=== PATIENT | male | born 1995 | race Two or more races ===

== ENCOUNTER 2017-08-06 15:27 | Emergency (ER) | payer SELFPAY ==
[~2017-08-06] VITALS: Ht 175.3 cm; Wt 86.2 kg
[2017-08-06] MEDS ORDERED: KEPPRA1000 MG ORAL (15:29)
[2017-08-06] MEDS ORDERED: TOPIRAMATE200 MG PO (15:29)
[2017-08-06 15:32] VITALS: BP 102/62
[2017-08-06] MEDS ORDERED: levETIRAcetam 500 MG in D5W 110 ML IV ONE (15:45)
[2017-08-06] MEDS ORDERED: levETIRAcetam 500mg vial IV ONE (15:59)
[2017-08-06 16:32] LABS: BASOPHILS % (AUTO) 1.3 % (0.0-2.0); EOSINOPHILS % (AUTO) 3.4 % (0.0-3.0); LYMPHOCYTES % (AUTO) 22.9 % (20.0-45.0); MEAN CORPUSCULAR HEMOGLOBIN 33.7 PG (27.0-31.0); MEAN CORPUSCULAR HGB CONC 37.5 G/DL (32.0-36.0); MEAN CORPUSCULAR VOLUME 90 FL (80-99); MEAN PLATELET VOLUME 8.8 FL (6.5-10.1); MONOCYTES % (AUTO) 7.3 % (1.0-10.0); PLATELET COUNT 187 K/UL (150-450); RED BLOOD COUNT 4.75 M/UL (4.70-6.10); RED CELL DISTRIBUTION WIDTH 11.7 % (11.6-14.8); WHITE BLOOD COUNT 7.1 K/UL (4.8-10.8)
[2017-08-06 17:00] LABS: ALANINE AMINOTRANSFERASE 32 U/L (3-41); ALBUMIN/GLOBULIN RATIO 1.7 (1.0-2.7); ANION GAP 12 (5-15); CALCIUM 8.9 mg/dL (8.6-10.2); CARBON DIOXIDE 19 mEQ/L (20-30); CHLORIDE 108 mEQ/L (98-107); GLOMERULAR FILTRATION RATE > 60 mL/min (>60); HEMOLYSIS 21; POTASSIUM 3.8 mEQ/L (3.4-4.9); SODIUM 139 mEQ/L (135-145); TOTAL PROTEIN 6.9 g/dL (6.6-8.7)
[2017-08-06 17:09] LABS: ASPARTATE AMINO TRANSFERASE < 5 U/L (5-40)
[2017-08-06 17:30] VITALS: BP 102/54
--- NOTE | 2017-08-06 17:47 | Emergency Room Report ---
History of Present Illness General Chief Complaint: Seizure Source: Patient Present Illness HPI This patient has a history of seizure disorder. He has had epilepsy since age of 7. He has had multiple breakthrough seizures today. He states that he typically has about one seizure per month. He states that he did run out of his Keppra yesterday. He has no other complaints. He denies cough or congestion. Denies chest pain or shortness of breath. Denies fever or chills. He has no other complaints. Allergies: Coded Allergies: No Known Allergies (Unverified , 08/06/17) Patient History Past Medical History: see triage record, seizures Social History: Denies: smoking, alcohol use, drug use Reviewed Nursing Documentation: PMH: Agreed, PSxH: Agreed Nursing Documentation-PMH Past Medical History: No History, Except For Hx Seizures: Yes Review of Systems All Other Systems: negative except mentioned in HPI Physical Exam Vital Signs Date Time Temp Pulse Resp B/P (MAP) Pulse Ox O2 Delivery O2 Flow Rate FiO2 08/06/17 15:24 97.3 81 18 102/62 100 Room Air Sp02 EP Interpretation: reviewed, normal General Appearance: no apparent distress, alert, GCS 15, non-toxic Head: normocephalic, atraumatic Eyes: bilateral eye normal inspection, bilateral eye PERRL ENT: hearing grossly normal, normal pharynx, no angioedema, normal voice Neck: full range of motion, supple/symm/no masses Respiratory: chest non-tender, lungs clear, normal breath sounds, speaking full sentences Cardiovascular #1: regular rate, rhythm, no edema Gastrointestinal: normal bowel sounds, non tender, soft, non-distended, no guarding, no rebound Rectal: deferred Musculoskeletal: back normal, gait/station normal, normal range of motion, non- tender Neurologic: alert, oriented x3, responsive, motor strength/tone normal, sensory intact, speech normal Psychiatric: judgement/insight normal, memory normal, mood/affect normal, no suicidal/homicidal ideation Skin: normal color, no rash, warm/dry, well hydrated Medical Decision Making Diagnostic Impression: Primary Impression: Seizure disorder ER Course I suspect the seizures that the patient is presenting with is non-emergent in etiology. The patient has a history of seizures in the past and has returned to baseline with normal neurologic status. The patient is not immunocompromised with no history of known structural brain disease. The patient does not have persistent altered mental status, fever or new focal neurologic deficit. Laboratory workup was noncontributory. I doubt meningitis so a lumbar puncture was not performed. The patient was counseled that, though unlikely, the possibility of an emergent cause of seizure may still be present and that the patient should return immediately if symptoms persist or worsen. I believe the patient is stable for discharge to followup with the primary care provider for further workup. Laboratory Tests Test 08/06/17 15:50 White Blood Count 7.1 K/UL (4.8-10.8) Red Blood Count 4.75 M/UL (4.70-6.10) Hemoglobin 16.0 G/DL (14.2-18.0) Hematocrit 42.7 % (42.0-52.0) Mean Corpuscular Volume 90 FL (80-99) Mean Corpuscular Hemoglobin 33.7 PG (27.0-31.0) H Mean Corpuscular Hemoglobin Concent 37.5 G/DL (32.0-36.0) H Red Cell Distribution Width 11.7 % (11.6-14.8) Platelet Count 187 K/UL (150-450) Mean Platelet Volume 8.8 FL (6.5-10.1) Neutrophils (%) (Auto) 65.0 % (45.0-75.0) Lymphocytes (%) (Auto) 22.9 % (20.0-45.0) Monocytes (%) (Auto) 7.3 % (1.0-10.0) Eosinophils (%) (Auto) 3.4 % (0.0-3.0) H Basophils (%) (Auto) 1.3 % (0.0-2.0) Sodium Level 139 mEQ/L (135-145) Potassium Level 3.8 mEQ/L (3.4-4.9) Chloride Level 108 mEQ/L (98-107) H Carbon Dioxide Level 19 mEQ/L (20-30) L Anion Gap 12 (5-15) Blood Urea Nitrogen 8 mg/dL (7-23) Creatinine 1.0 mg/dL (0.7-1.2) Estimate Glomerular Filtration Rate > 60 mL/min (>60) Glucose Level 126 mg/dL (74-106) H Calcium Level 8.9 mg/dL (8.6-10.2) Total Bilirubin 0.3 mg/dL (0.0-1.2) Aspartate Amino Transferase (AST) < 5 U/L (5-40) L Alanine Aminotransferase (ALT) 32 U/L (3-41) Alkaline Phosphatase 87 U/L (40-129) Total Protein 6.9 g/dL (6.6-8.7) Albumin 4.4 g/dL (3.5-5.2) Globulin 2.5 g/dL Albumin/Globulin Ratio 1.7 (1.0-2.7) EKG Diagnostic Results Rate: normal Rhythm: NSR ST Segments: no acute changes Rhythm Strip Diag. Results EP Interpretation: yes Rate: 70's Rhythm: NSR, no PVC's, no ectopy Last Vital Signs Date Time Temp Pulse Resp B/P (MAP) Pulse Ox O2 Delivery O2 Flow Rate FiO2 08/06/17 15:32 81 18 Room Air 08/06/17 15:32 97.3 102/62 100 Status: improved Disposition: HOME, SELF-CARE Condition: Improved Referrals: NOT CHOSEN [facility]/,REFERRING (PCP) Patient Instructions: Seizure, Adult EMELYN HAYES D.O. Aug 06, 2017 17:47
[2017-08-06 18:00] VITALS: BP 102/54
--- NOTE | 2017-08-07 17:57 | Cardiology Report ---
APPROVED REPORT EKG Measurement Heart [id number] Normal sinus rhythm Rightward axis Borderline ECG
== END 2017-08-06 18:00 | disposition home or self-care (01) ==
LOC: EDBD 15:27 → EMR 15:55
DX: G40.909 Epilepsy, unspecified, not intractable, without status epilepticus (principal)
CPT/HCPCS: 36415; 80053; 82962; 85025; 93005; 96361; 96365; 99284; J1953

== ENCOUNTER 2019-03-26 18:10 | Emergency (ER) | payer MEDICAID ==
[~2019-03-26] VITALS: Ht 167.6 cm; Wt 90.7 kg
[~2019-03-26 18:10] MED LIST: KEPPRA1000 MG ORAL; TOPIRAMATE200 MG PO
[2019-03-26] MEDS ORDERED: TRILEPTAL600 MG PO (18:29)
[2019-03-26] MEDS ORDERED: VIMPAT200 MG PO (18:29)
[2019-03-26] MEDS ORDERED: PHENYTOIN100 MG/4 M ORAL (18:29)
--- NOTE | 2019-03-26 18:37 | NUR ---
ED Nurse Note: Attempted to contact patient's neurologist, Carly Fuentes, left voicemail.
[2019-03-26 18:46] LABS: BASOPHILS % (AUTO) 1.5 % (0.0-2.0); EOSINOPHILS % (AUTO) 4.7 % (0.0-3.0); HEMATOCRIT 44.6 % (42.0-52.0); HEMOGLOBIN 15.8 G/DL (14.2-18.0); LYMPHOCYTES % (AUTO) 22.7 % (20.0-45.0); MEAN CORPUSCULAR VOLUME 88 FL (80-99); MONOCYTES % (AUTO) 8.3 % (1.0-10.0); NEUTROPHILS % (AUTO) 62.8 % (45.0-75.0); PLATELET COUNT 186 K/UL (150-450); RED BLOOD COUNT 5.09 M/UL (4.70-6.10); RED CELL DISTRIBUTION WIDTH 11.6 % (11.6-14.8)
[2019-03-26 18:49] LABS: ANION GAP 7 mmol/L (5-15); BLOOD UREA NITROGEN 9 mg/dL (7-18); CALCIUM 8.8 MG/DL (8.5-10.1); CARBON DIOXIDE 28 MMOL/L (21-32); CHLORIDE 105 MMOL/L (98-107); CREATININE 0.9 MG/DL (0.55-1.30); POTASSIUM 3.9 MMOL/L (3.5-5.1); SODIUM 140 MMOL/L (136-145)
[2019-03-26 18:54] LABS: ALANINE AMINOTRANSFERASE 48 U/L (12-78); ALBUMIN 4.1 G/DL (3.4-5.0); ALBUMIN/GLOBULIN RATIO 1.2 (1.0-2.7); ALKALINE PHOSPHATASE 102 U/L (46-116); ASPARTATE AMINO TRANSFERASE 21 U/L (15-37); BILIRUBIN,TOTAL 0.3 MG/DL (0.2-1.0)
[2019-03-26 18:55] VITALS: BP 116/64
--- NOTE | 2019-03-26 18:58 | NUR ---
ED Nurse Note: pt ismaela ra 24 pt from home states he has had about 20 seizures today A&OX4 in ED answering questions . pt placed on sz precautions and on monitor. vss. blood sent to lab ivf up infusing . Pt states he is unable to provide urine sample but will try.
--- NOTE | 2019-03-26 19:11 | NUR ---
HAND-OFF: Report given to Pipe MADSEN.
[2019-03-26 20:25] VITALS: BP 128/72
[2019-03-26 20:27] VITALS: BP 128/72
--- NOTE | 2019-03-26 20:27 | NUR ---
ER DISCHARGE NOTE: Patient is cleared to be discharged per ERMD, pt is aox4, on room air, with stable vital signs. pt was given dc and prescription instructions, pt was able to verbalize understanding, pt id band and iv site removed without complications. pt is able to ambulate with steady gait. pt took all belongings. Pt is waitting his father to pick him up.
--- NOTE | 2019-03-26 20:54 | Emergency Room Report ---
History of Present Illness General Chief Complaint: Seizure Source: Patient Present Illness HPI 23-year-old male presents ED for evaluation. Patient brought in by EMS status post seizure. Patient states he had multiple seizures today. They're partial seizures. Not tonic-clonic. Never lost consciousness. States he has history of seizures and takes multiple medications. States he's been compliant with his medications however he was asked stay up all night for a CT scan on an outpatient setting this morning. States that he felt stressed because of that. Denies alcohol or drug use. Denies headache. Denies fevers or chills. No other aggravating relieving factors. Denies any other associated symptoms Allergies: Coded Allergies: CARBAMAZEPINE (Unverified Allergy, Unknown, 03/26/19) Patient History Past Medical History: seizures Past Surgical History: none Pertinent Family History: none Social History: Denies: smoking, alcohol use, drug use Immunizations: UTD Reviewed Nursing Documentation: PMH: Agreed; PSxH: Agreed Nursing Documentation-PMH Past Medical History: No History, Except For Hx Seizures: Yes Review of Systems All Other Systems: negative except mentioned in HPI Physical Exam Vital Signs Date Time Temp Pulse Resp B/P (MAP) Pulse Ox O2 Delivery O2 Flow Rate FiO2 03/26/19 18:03 98.1 70 16 138/94 100 Room Air Sp02 EP Interpretation: reviewed, normal General Appearance: no apparent distress, alert, GCS 15, non-toxic Head: normocephalic, atraumatic Eyes: bilateral eye normal inspection, bilateral eye PERRL ENT: hearing grossly normal, normal pharynx, no angioedema, normal voice Neck: full range of motion, supple/symm/no masses Respiratory: chest non-tender, lungs clear, normal breath sounds, speaking full sentences Cardiovascular #1: regular rate, rhythm, no edema Cardiovascular #2: 2+ carotid (R), 2+ carotid (L), 2+ radial (R), 2+ radial (L) , 2+ dorsalis pedis (R), 2+ dorsalis pedis (L) Gastrointestinal: normal bowel sounds, non tender, soft, non-distended, no guarding, no rebound Rectal: deferred Genitourinary: normal inspection, no CVA tenderness Musculoskeletal: back normal, gait/station normal, normal range of motion, non- tender Neurologic: alert, oriented x3, responsive, cinder pitman III-XII nml as tested, motor strength/tone normal, sensory intact, cerebellar normal, normal gait, speech normal Psychiatric: judgement/insight normal, memory normal, mood/affect normal, no suicidal/homicidal ideation Reflexes: 3+ bicep (R), 3+ bicep (L), 3+ tricep (R), 3+ tricep (L), 3+ knee (R) , 3+ knee (L) Skin: normal color, no rash, warm/dry, well hydrated Lymphatic: no adenopathy Medical Decision Making Diagnostic Impression: Primary Impression: Seizure disorder ER Course Hospital Course 23-year-old M presents to ED status post seizure. Differential diagnosis includes- breakthrough seizure, alcohol abuse, noncompliance with medication Clinical course Patient placed on stretcher. Initial history and physical I ordered labs, IV fluids, EKG Labs-electrolytes okay, no leukocytosis, hemoglobin/hematocrit stable. EKG - NSR, no acute ischemic changes interpreted by me Discussed findings with patient. Patient had no seizure activity during ED course. Stable vitals. Patient states he does have seizures every day despite taking medication. No focal neurological deficits. No postictal state. I believe patient can be safely discharged to home at this time. Patient agrees. Patient does not drive anymore and his father will come pick him up. States he'll follow-up with his PMD. States he has his medications at home Diagnosis - seizure disorder stable and discharged to home. Followup with PMD. Return to ED if symptoms recur or worsen Labs Test 03/26/19 18:20 White Blood Count 8.0 K/UL (4.8-10.8) Red Blood Count 5.09 M/UL (4.70-6.10) Hemoglobin 15.8 G/DL (14.2-18.0) Hematocrit 44.6 % (42.0-52.0) Mean Corpuscular Volume 88 FL (80-99) Mean Corpuscular Hemoglobin 31.0 PG (27.0-31.0) Mean Corpuscular Hemoglobin Concent 35.4 G/DL (32.0-36.0) Red Cell Distribution Width 11.6 % (11.6-14.8) Platelet Count 186 K/UL (150-450) Mean Platelet Volume 6.9 FL (6.5-10.1) Neutrophils (%) (Auto) 62.8 % (45.0-75.0) Lymphocytes (%) (Auto) 22.7 % (20.0-45.0) Monocytes (%) (Auto) 8.3 % (1.0-10.0) Eosinophils (%) (Auto) 4.7 % (0.0-3.0) Basophils (%) (Auto) 1.5 % (0.0-2.0) Sodium Level 140 MMOL/L (136-145) Potassium Level 3.9 MMOL/L (3.5-5.1) Chloride Level 105 MMOL/L (98-107) Carbon Dioxide Level 28 MMOL/L (21-32) Anion Gap 7 mmol/L (5-15) Blood Urea Nitrogen 9 mg/dL (7-18) Creatinine 0.9 MG/DL (0.55-1.30) Estimat Glomerular Filtration Rate > 60 mL/min (>60) Glucose Level 112 MG/DL (74-106) Calcium Level 8.8 MG/DL (8.5-10.1) Total Bilirubin 0.3 MG/DL (0.2-1.0) Aspartate Amino Transf (AST/SGOT) 21 U/L (15-37) Alanine Aminotransferase (ALT/SGPT) 48 U/L (12-78) Alkaline Phosphatase 102 U/L (46-116) Total Protein 7.4 G/DL (6.4-8.2) Albumin 4.1 G/DL (3.4-5.0) Globulin 3.3 g/dL Albumin/Globulin Ratio 1.2 (1.0-2.7) Salicylates Level 1.1 ug/mL (2.8-20) Acetaminophen Level < 2 MCG/ML (10-30) Serum Alcohol < 3 mg/dL EKG Diagnostic Results Rate: normal Rhythm: NSR ST Segments: no acute changes ASA given to the pt in ED: No Rhythm Strip Diag. Results EP Interpretation: yes Rhythm: NSR, no PVC's, no ectopy Last Vital Signs Date Time Temp Pulse Resp B/P (MAP) Pulse Ox O2 Delivery O2 Flow Rate FiO2 03/26/19 20:27 98.3 74 16 128/72 96 Room Air Status: improved Disposition: HOME, SELF-CARE Condition: Stable Referrals: [facility],REFERRING (PCP) Patient Instructions: Seizure, Adult Tomy Miller MD March 26, 2019 20:54
--- NOTE | 2019-03-27 17:43 | Cardiology Report ---
APPROVED REPORT EKG Measurement Heart [id number] Normal sinus rhythm Rightward axis Borderline ECG
== END 2019-03-26 20:30 | disposition home or self-care (01) ==
LOC: EDBD 18:10 → EMR 19:00
DX: G40.909 Epilepsy, unspecified, not intractable, without status epilepticus (principal); Z88.8 Allergy status to other drugs, medicaments and biological substances
CPT/HCPCS: 36415; 80053; 80329; 82962; 85025; 93005; 99284

== ENCOUNTER 2019-04-12 16:22 | Emergency (ER) | payer MEDICAID ==
[~2019-04-12] VITALS: Ht 165.1 cm; Wt 81.6 kg
[~2019-04-12 16:22] MED LIST changes: +PHENYTOIN100 MG/4 M ORAL; +TRILEPTAL600 MG PO; +VIMPAT200 MG PO
--- NOTE | 2019-04-12 16:37 | NUR ---
ED Nurse Note: Pt ambulated to ED from home, A&O x4, c/o seizures. Pt VSS. Pt stated he had a seizure last night and 2 in the waiting room today. Pt is nauseous, vommiting once during assessment. Pt states he is experiencing an aura, seizure precautions in place; pads, o2 and suction available. Pt denies pain at this time.
[2019-04-12 16:41] VITALS: BP 122/72
--- NOTE | 2019-04-12 16:44 | Emergency Room Report ---
History of Present Illness General Chief Complaint: Seizure Source: Patient, Medical Record Present Illness HPI Patient presents with complaints of seizure activity Reports that he is been out of his vimpat and feels that this is causing several seizures today Denies any chest pain or shortness of breath denies any headache as any focal weakness patient was here in the beginning of March with similar seizure activity Patient also takes Dilantin Denies any neck pain or photophobia Requesting his medications Allergies: Coded Allergies: CARBAMAZEPINE (Unverified Allergy, Unknown, 03/26/19) Patient History Past Medical History: see triage record Pertinent Family History: none Reviewed Nursing Documentation: PMH: Agreed; PSxH: Agreed Nursing Documentation-PMH Past Medical History: No History, Except For Hx Seizures: Yes Review of Systems All Other Systems: negative except mentioned in HPI Physical Exam Vital Signs Date Time Temp Pulse Resp B/P (MAP) Pulse Ox O2 Delivery O2 Flow Rate FiO2 04/12/19 16:27 97.5 68 18 98 Room Air Sp02 EP Interpretation: reviewed, normal General Appearance: well appearing, no apparent distress Head: normocephalic, atraumatic Eyes: bilateral eye PERRL, bilateral eye EOMI ENT: hearing grossly normal, normal pharynx, TMs + canals normal, uvula midline Neck: full range of motion, supple, no meningismus, no bony tend Respiratory: lungs clear, normal breath sounds, no rhonchi, no respiratory distress, no retraction, no accessory muscle use Cardiovascular #1: normal peripheral pulses, regular rate, rhythm, no edema, no gallop, no JVD, no murmur Gastrointestinal: normal bowel sounds, non tender, soft, no mass, no organomegaly, non-distended, no guarding, no hernia, no pulsatile mass, no rebound Genitourinary: no CVA tenderness Musculoskeletal: normal inspection Neurologic: oriented x3, responsive, tub attendant III-XII nml as tested, motor strength/ tone normal, sensory intact Psychiatric: mood/affect normal Skin: normal color, no rash, warm/dry, palpation normal Lymphatic: normal inspection, no adenopathy Medical Decision Making Diagnostic Impression: Primary Impression: Seizure disorder ER Course Given the patient's history and presentation patient was provided with one of his medications here Patient observed and remains medically stable seizure-free patient was also initially somewhat nauseated and Zofran was provided Patient continues to remain hemodynamically stable neurologically intact further imaging was not obtained Upon review of the patient's medication it appears that he has 2 refills on his medications and will follow closely Last Vital Signs Date Time Temp Pulse Resp B/P (MAP) Pulse Ox O2 Delivery O2 Flow Rate FiO2 04/12/19 16:41 68 18 Room Air 04/12/19 16:27 97.5 98 Status: improved Disposition: HOME, SELF-CARE Condition: Improved Additional Instructions: Patient is provided with the discharge instructions notified to follow up with primary doctor in the next 2-3 days otherwise return to the er with any worsening symptoms. Please note that this report is being documented using [employer] Interactive technology. This can lead to erroneous entry secondary to incorrect interpretation by the dictating instrument. Yomi Whaley DO April 12, 2019 16:44
[2019-04-12] MEDS ORDERED: Lacosamide 50mg tablet ORAL ONE (16:45)
[2019-04-12 18:21] VITALS: BP 112/68
--- NOTE | 2019-04-12 18:22 | NUR ---
ER DISCHARGE NOTE: Patient is cleared to be discharged per ERMD, pt is aox4, on room air, with stable vital signs. pt was given dc instructions, pt was able to verbalize understanding, pt id band removed. pt is able to ambulate with steady gait. pt took all belongings. Instructed to return to ED if seizure activity progresses
== END 2019-04-12 18:22 | disposition home or self-care (01) ==
LOC: EMR 16:46
DX: G40.909 Epilepsy, unspecified, not intractable, without status epilepticus (principal); Z88.8 Allergy status to other drugs, medicaments and biological substances
CPT/HCPCS: 99282

== ENCOUNTER 2019-07-11 23:57 | Emergency (ER) | payer MEDICAID ==
[~2019-07-11] VITALS: Ht 167.6 cm; Wt 90.7 kg
[2019-07-12 00:01] VITALS: BP 118/72
--- NOTE | 2019-07-12 00:01 | NUR ---
ED Nurse Note: pt walked in to ED c/o S/P seizure and hit his head on the wood floor. VSS. pt is alert x4. C/O COOLEY 06/04
[2019-07-12] MEDS ORDERED: levETIRAcetam 500mg/NS100ml 100 ML IVPB ONE (00:30)
--- NOTE | 2019-07-12 00:44 | Emergency Room Report ---
History of Present Illness General Chief Complaint: Seizure Source: Patient, Medical Record Present Illness HPI Is a 23-year-old male with a history of seizure. He said he got him pretty regularly at least monthly. He presents with 2 tonic-clonic seizure activity witnessed at home. He does have or trauma. He took an Uber. He is currently taking Dilantin, Keppra and Vimpat. Denies any incontinence of bowel or urine. No headache. No nausea no vomiting. Allergies: Coded Allergies: CARBAMAZEPINE (Unverified Allergy, Unknown, 03/26/19) Patient History Past Medical History: see triage record, old chart reviewed Past Surgical History: none Pertinent Family History: none Social History: Denies: smoking Immunizations: other Reviewed Nursing Documentation: PMH: Agreed; PSxH: Agreed Nursing Documentation-PMH Past Medical History: No History, Except For Hx Seizures: Yes Review of Systems Eye: Denies: eye pain, blurred vision ENT: Denies: ear pain, nose congestion, throat swelling Respiratory: Denies: cough, shortness of breath Cardiovascular: Denies: chest pain, palpitations Gastrointestinal: Denies: abdominal pain, diarrhea, nausea, vomiting Musculoskeletal: Denies: back pain, joint pain Skin: Denies: rash Neurological: Denies: headache, numbness Endocrine: Denies: increased thirst, increased urine Hematologic/Lymphatic: Denies: easy bruising All Other Systems: negative except mentioned in HPI Physical Exam Vital Signs Date Time Temp Pulse Resp B/P (MAP) Pulse Ox O2 Delivery O2 Flow Rate FiO2 07/11/19 23:58 98.8 82 16 107/69 (82) 95 Room Air Vitals normal Sp02 EP Interpretation: reviewed, normal General Appearance: well appearing, no apparent distress, alert Head: normocephalic, atraumatic Eyes: bilateral eye PERRL, bilateral eye EOMI ENT: hearing grossly normal, normal pharynx, other - Abrasion on left tongue Neck: full range of motion, supple, no meningismus Respiratory: chest non-tender, lungs clear, normal breath sounds Cardiovascular #1: regular rate, rhythm, no murmur Gastrointestinal: normal bowel sounds, non tender, no mass, no organomegaly, no bruit, non-distended Musculoskeletal: back normal, gait/station normal, normal range of motion Psychiatric: mood/affect normal Medical Decision Making Diagnostic Impression: Primary Impression: Epileptic seizure, generalized ER Course Patient with breakthrough seizure. His Dilantin level was extremely low. Dose of Dilantin given here. Keppra was also given here. Patient said he has been throughout the hospital and people told him the same thing about his Dilantin. He is compliant with medication. I suspect that his other medication causes liver to metabolize Dilantin much faster. He may need to be on a different medication. No evidence of head injury or any abnormality in mental status of focal deficit to warrant CT scan. Will discharge home. Last Vital Signs Date Time Temp Pulse Resp B/P (MAP) Pulse Ox O2 Delivery O2 Flow Rate FiO2 07/11/19 23:58 98.8 82 16 107/69 (82) 95 Room Air Status: improved Disposition: HOME, SELF-CARE Condition: Stable Patient Instructions: Seizure, Adult Additional Instructions: Follow-up with your neurologist within a week. You may need to be on a different medication than Dilantin/phenytoin. Return if symptoms worsen. Eron Ngo MD Jul 12, 2019 00:44
[2019-07-12] MEDS ORDERED: Phenytoin 1,000 MG in NS 275 ML IVPB ONE (01:15)
[2019-07-12] MEDS ORDERED: Ketorolac 30mg Inj ONE (01:34)
[2019-07-12] MEDS ORDERED: Ketorolac 30mg Inj IV ONE (01:45)
[2019-07-12 02:48] VITALS: BP 120/70
--- NOTE | 2019-07-12 02:48 | NUR ---
ER DISCHARGE NOTE: Patient is cleared to be discharged per ERMD, pt is aox4, on room air, with stable vital signs. pt was given dc instructions, pt was able to verbalize understanding, pt id band and iv site removed without complications. pt is able to ambulate with steady gait. pt took all belongings.
== END 2019-07-12 02:48 | disposition home or self-care (01) ==
LOC: EMR 07-12 00:18
DX: G40.409 Other generalized epilepsy and epileptic syndromes, not intractable, without status epilepticus (principal); Z88.8 Allergy status to other drugs, medicaments and biological substances
CPT/HCPCS: 36415; 80185; 96365; 96375; 99284; J1165; J1885; J1953; J7050

== ENCOUNTER 2019-07-22 13:30 | Emergency (ER) | payer MEDICAID ==
[~2019-07-22] VITALS: Ht 165.1 cm; Wt 90.7 kg
[2019-07-22 13:30] VITALS: BP 104/57
--- NOTE | 2019-07-22 13:30 | NUR ---
ED Nurse Note: Patient brougth by RA from home due to possible seizure. Pt found himself on floor. Stahted that seizure was preceeded by an aura then loss his conciousness after. Patient verbalized that he missed his meds this morning. Has hx of seizure. Alert and oriented, verbally responsive. Breathing even and unlabored. VSS.
[2019-07-22] MEDS ORDERED: LORazepam Inj 2mg/ml 1ml ONE (13:49)
--- NOTE | 2019-07-22 13:50 | Emergency Room Report ---
History of Present Illness General Chief Complaint: Seizure Source: Patient, Medical Record Present Illness HPI Patient is a 23-year-old male who presented after possible seizure activity. Patient reports having 2 episodes in which he possibly lost consciousness. He had prior history of seizure disorder. He had previously been taking multiple medications for seizures including 4000 mg of Keppra at bedtime. Patient is also taking Vimpat but cannot recall the dose. He additionally states that he has been taking Dilantin. Patient had a vagus nerve stimulator implanted. He denies any recent fever. Reports having a mild throbbing headache which he states usual after his seizures. Patient denies any recent episodes of fever vomiting or diarrhea. Patient reports possibly missing his medications for seizures this morning. Allergies: Coded Allergies: CARBAMAZEPINE (Unverified Allergy, Unknown, 03/26/19) Patient History Past Medical History: see triage record Reviewed Nursing Documentation: PMH: Agreed; PSxH: Agreed Nursing Documentation-PMH Past Medical History: No History, Except For Hx Seizures: Yes Review of Systems Gastrointestinal: Reports: abdominal pain Physical Exam Vital Signs Date Time Temp Pulse Resp B/P (MAP) Pulse Ox O2 Delivery O2 Flow Rate FiO2 07/22/19 13:27 98.6 97 16 121/68 (85) 100 Room Air Sp02 EP Interpretation: reviewed, normal General Appearance: normal inspection, well appearing, no apparent distress, alert, GCS 15, non-toxic Head: atraumatic ENT: hearing grossly normal, normal voice, other - tongue abrasion, no bleeding Neck: normal inspection, full range of motion, supple, no bony tend Respiratory: normal inspection, lungs clear, normal breath sounds, no respiratory distress, no retraction, no wheezing Cardiovascular #1: regular rate, rhythm, no edema Gastrointestinal: normal inspection, normal bowel sounds, non tender, soft, no guarding, no hernia Genitourinary: no CVA tenderness Musculoskeletal: normal inspection, back normal, normal range of motion Neurologic: normal inspection, alert, responsive, speech normal Psychiatric: normal inspection, judgement/insight normal, mood/affect normal Medical Decision Making Diagnostic Impression: Primary Impression: Epileptic seizure, generalized Additional Impressions: Seizure disorder Noncompliance with medications ER Course Patient presented after a seizure. Differential diagnosis include was not limited to alcohol withdrawal, hyponatremia, breakthrough seizure, medication noncompliance, encephalitis, stimulant intoxication, isoniazid overdose among others. Patient was noted to have a long-standing seizure disorder. He reports being noncompliant with his medications. Patient is noted to have unusually high doses of medications and has frequent seizure despite being given multiple medications and a vagus nerve stimulator. Patient was given IV Ativan . He was given a dose of Vimpat as well as IV magnesium. Patient was given IV fluids. He was placed on a compliance monitor. EKG interpreted by me normal sinus rhythm, normal intervals, normal QRS without acute ST or T wave changes. Patient was noted to be back to his baseline mental status exam. Patient is awake alert oriented and able to answer questions and follow commands. Patient was given prescriptions for his seizure medications. The patient is advised to follow up with primary care doctor in 1-2 days. Patient is advised to return if any worsening condition or if any changes in status that are concerning. This report is dictated with [employer] acute care clinical nurse specialist software which may occasionally lead to discrepancies related to use of this software. Labs Test 07/22/19 13:50 White Blood Count 7.9 K/UL (4.8-10.8) Red Blood Count 5.48 M/UL (4.70-6.10) Hemoglobin 16.9 G/DL (14.2-18.0) Hematocrit 48.7 % (42.0-52.0) Mean Corpuscular Volume 89 FL (80-99) Mean Corpuscular Hemoglobin 30.8 PG (27.0-31.0) Mean Corpuscular Hemoglobin Concent 34.6 G/DL (32.0-36.0) Red Cell Distribution Width 11.0 % (11.6-14.8) Platelet Count 244 K/UL (150-450) Mean Platelet Volume 7.5 FL (6.5-10.1) Neutrophils (%) (Auto) 67.1 % (45.0-75.0) Lymphocytes (%) (Auto) 16.6 % (20.0-45.0) Monocytes (%) (Auto) 9.9 % (1.0-10.0) Eosinophils (%) (Auto) 5.2 % (0.0-3.0) Basophils (%) (Auto) 1.2 % (0.0-2.0) Sodium Level 141 MMOL/L (136-145) Potassium Level 3.4 MMOL/L (3.5-5.1) Chloride Level 102 MMOL/L (98-107) Carbon Dioxide Level 20 MMOL/L (21-32) Anion Gap 19 mmol/L (5-15) Blood Urea Nitrogen 10 mg/dL (7-18) Creatinine 0.8 MG/DL (0.55-1.30) Estimat Glomerular Filtration Rate > 60 mL/min (>60) Glucose Level 87 MG/DL (74-106) Calcium Level 9.4 MG/DL (8.5-10.1) Total Bilirubin 0.5 MG/DL (0.2-1.0) Aspartate Amino Transf (AST/SGOT) 29 U/L (15-37) Alanine Aminotransferase (ALT/SGPT) 54 U/L (12-78) Alkaline Phosphatase 143 U/L (46-116) Total Protein 8.4 G/DL (6.4-8.2) Albumin 5.0 G/DL (3.4-5.0) Globulin 3.4 g/dL Albumin/Globulin Ratio 1.5 (1.0-2.7) Phenytoin (Dilantin) Level 8.2 ug/mL (10-20) EKG Diagnostic Results Rate: normal - 86 Rhythm: NSR ST Segments: no acute changes Last Vital Signs Date Time Temp Pulse Resp B/P (MAP) Pulse Ox O2 Delivery O2 Flow Rate FiO2 07/22/19 13:27 98.6 97 16 121/68 (85) 100 Room Air Status: improved Disposition: HOME, SELF-CARE Condition: Stable Scripts Phenytoin Sodium Extended* (DILANTIN*) 100 Mg Capsule 300 MG ORAL BEDTIME, #90 CAP Prov: Aric Peng MD 07/22/19 Levetiracetam (KEPPRA) 1,000 Mg Tablet 4000 MG ORAL QHS, #30 TAB 0 Refills Prov: Aric Peng MD 07/22/19 Lacosamide (VIMPAT) 100 Mg Tablet 200 MG PO QHS, #20 TAB Prov: Aric Peng MD 07/22/19 Aric Peng MD Jul 22, 2019 13:49
[2019-07-22] MEDS ORDERED: Lacosamide 50mg tablet ORAL ONE ×2 (14:00→15:15)
[2019-07-22] MEDS ORDERED: LORazepam Inj 2mg/ml 1ml IV ONE (14:00)
[2019-07-22 14:05] LABS: BASOPHILS % (AUTO) 1.2 % (0.0-2.0); EOSINOPHILS % (AUTO) 5.2 % (0.0-3.0); HEMATOCRIT 48.7 % (42.0-52.0); HEMOGLOBIN 16.9 G/DL (14.2-18.0); LYMPHOCYTES % (AUTO) 16.6 % (20.0-45.0); MEAN CORPUSCULAR VOLUME 89 FL (80-99); MONOCYTES % (AUTO) 9.9 % (1.0-10.0); NEUTROPHILS % (AUTO) 67.1 % (45.0-75.0); PLATELET COUNT 244 K/UL (150-450); RED BLOOD COUNT 5.48 M/UL (4.70-6.10); WHITE BLOOD COUNT 7.9 K/UL (4.8-10.8)
[2019-07-22 14:20] LABS: ANION GAP 19 mmol/L (5-15); BLOOD UREA NITROGEN 10 mg/dL (7-18); CALCIUM 9.4 MG/DL (8.5-10.1); CARBON DIOXIDE 20 MMOL/L (21-32); CHLORIDE 102 MMOL/L (98-107); CREATININE 0.8 MG/DL (0.55-1.30); POTASSIUM 3.4 MMOL/L (3.5-5.1); SODIUM 141 MMOL/L (136-145)
[2019-07-22 14:24] LABS: ALANINE AMINOTRANSFERASE 54 U/L (12-78); ALBUMIN/GLOBULIN RATIO 1.5 (1.0-2.7); ALKALINE PHOSPHATASE 143 U/L (46-116); ASPARTATE AMINO TRANSFERASE 29 U/L (15-37); BILIRUBIN,TOTAL 0.5 MG/DL (0.2-1.0)
[2019-07-22 15:37] VITALS: BP 107/66
[2019-07-22] MEDS ORDERED: DILANTIN100 MG ORAL (15:44)
[2019-07-22] MEDS ORDERED: KEPPRA1000 MG ORAL (15:44)
[2019-07-22] MEDS ORDERED: VIMPAT100 MG PO (15:44)
[2019-07-22 15:58] VITALS: BP 107/66
--- NOTE | 2019-07-22 15:58 | NUR ---
ED Nurse Note: Pt cleared by ERMD for discharge. DC instructions/prescription was given and explained to pt and verbalized understanding of teachings. All medical devices such as ID band and IV line removed. Pt is AAO x4, ambulatory and left with all personal belongings.
== END 2019-07-22 15:58 | disposition home or self-care (01) ==
LOC: EDBD 13:30 → EMR 14:16
DX: G40.409 Other generalized epilepsy and epileptic syndromes, not intractable, without status epilepticus (principal); Z91.19 Patient's noncompliance with other medical treatment and regimen; Z88.8 Allergy status to other drugs, medicaments and biological substances; Z96.89 Presence of other specified functional implants
CPT/HCPCS: 36415; 80053; 80185; 82962; 85025; 93005; 96365; 96375; 99284; J7040; J8499

== ENCOUNTER 2019-07-26 22:32 | Emergency (ER) | payer MEDICAID ==
[~2019-07-26] VITALS: Ht 165.1 cm; Wt 86.2 kg
[~2019-07-26 22:32] MED LIST changes: +DILANTIN100 MG ORAL; +VIMPAT100 MG PO
[2019-07-26 22:33] VITALS: BP 131/92
--- NOTE | 2019-07-26 22:33 | NUR ---
ED Nurse Note: Pt BIBA R34 from home c/c seizure activity about 12 times. pt reports headache 10/10 pain, n/v.
[2019-07-26] MEDS ORDERED: levETIRAcetam 1,000mg/NS100ml 100 ML IVPB ONE (22:45)
[2019-07-26] MEDS ORDERED: Lacosamide 50mg tablet ORAL ONE (22:45)
--- NOTE | 2019-07-26 22:49 | Emergency Room Report ---
History of Present Illness General Chief Complaint: Seizure Source: Patient, EMS Present Illness HPI Disclaimer: Please note that this report is being documented using [employer] technology. This can lead to erroneous entry secondary to incorrect interpretation by the dictating instrument. HPI: 23-year-old male with history of epilepsy on Keppra, Vimpat, Dilantin and with a vagus nerve stimulator presents for evaluation of breakthrough seizures and head injury. The patient states he was having multiple "mini seizures" throughout the day and experiencing some vomiting, diarrhea. He has been taking his medications but was seen for breakthrough seizures in this emergency department 4 days ago. He takes 4000 mg Keppra at night and Vimpat and Dilantin throughout the day. He has not missed any doses. Denies any alcohol abuse or withdrawal. He states he does not know what happened exactly but he lost consciousness and fell backwards striking the back of his head. He is complaining of 10/10 headache. He typically does have a headache after a seizure. There are no witnesses to confirm seizure activity today. He denies any ataxia, weakness, chest pain, shortness of breath. PMH: Seizure disorder PSH: Vagus nerve stimulator Allergies: Carbamazepine Social Hx: Denies alcohol or drug abuse Allergies: Coded Allergies: CARBAMAZEPINE (Unverified Allergy, Unknown, 03/26/19) Nursing Documentation-PMH Past Medical History: No History, Except For Hx Seizures: Yes Review of Systems All Other Systems: negative except mentioned in HPI Physical Exam Vital Signs Date Time Temp Pulse Resp B/P (MAP) Pulse Ox O2 Delivery O2 Flow Rate FiO2 07/26/19 22:29 98.8 86 18 131/92 (105) 99 Room Air General: Awake and alert, no acute distress HEENT: NC/AT. No hematoma, lacerations or abrasions over the scalp or face. EOMI. PERRLA. Pupils approximately 6 mm no nystagmus. Facial expressions are symmetrical. No facial droop. Uvula is midline, tongue is midline Cardiovascular: RRR. S1 and S2 normal. No murmur appreciated Resp: Normal work of breathing. No cough, wheezing or crackles appreciated Abdomen: Abdomen is soft, nondistended. Nontender Skin: Intact. No abrasions, laceration or rash over the exposed skin MSK: Normal tone and bulk. Moving all extremities. No obvious deformity. There is no drift in the upper or lower extremities bilaterally. Neuro: Awake and alert. Mentating appropriately. Facial expression symmetrical. No dysarthria, no ataxia on [id number] or [id number] testing. Sensation to light touch is intact over the upper and lower extremities. The patient has intact speech with good repetition, comprehension. Fund of knowledge is full. No aphasia, no neglect. NIH: 0 Medical Decision Making Diagnostic Impression: Primary Impression: Epileptic seizure, generalized Additional Impression: Head injury ER Course 23-year-old male with history of seizure disorder presents for evaluation of head injury from loss of consciousness and questionable seizure activity. Patient will be loaded with Keppra. Will start infection and metabolic workup for breakthrough seizures. Laboratory Tests Test 07/26/19 22:34 07/26/19 23:23 White Blood Count 7.6 K/UL (4.8-10.8) Red Blood Count 5.45 M/UL (4.70-6.10) Hemoglobin 16.2 G/DL (14.2-18.0) Hematocrit 46.3 % (42.0-52.0) Mean Corpuscular Volume 85 FL (80-99) Mean Corpuscular Hemoglobin 29.7 PG (27.0-31.0) Mean Corpuscular Hemoglobin Concent 35.0 G/DL (32.0-36.0) Red Cell Distribution Width 10.7 % (11.6-14.8) L Platelet Count 244 K/UL (150-450) Mean Platelet Volume 7.6 FL (6.5-10.1) Neutrophils (%) (Auto) 58.5 % (45.0-75.0) Lymphocytes (%) (Auto) 25.7 % (20.0-45.0) Monocytes (%) (Auto) 9.8 % (1.0-10.0) Eosinophils (%) (Auto) 4.8 % (0.0-3.0) H Basophils (%) (Auto) 1.2 % (0.0-2.0) Sodium Level 140 MMOL/L (136-145) Potassium Level 3.7 MMOL/L (3.5-5.1) Chloride Level 104 MMOL/L (98-107) Carbon Dioxide Level 25 MMOL/L (21-32) Anion Gap 11 mmol/L (5-15) Blood Urea Nitrogen 8 mg/dL (7-18) Creatinine 1.0 MG/DL (0.55-1.30) Estimate Glomerular Filtration Rate > 60 mL/min (>60) Glucose Level 90 MG/DL (74-106) Calcium Level 9.7 MG/DL (8.5-10.1) Total Bilirubin 0.4 MG/DL (0.2-1.0) Aspartate Amino Transferase (AST) 54 U/L (15-37) H Alanine Aminotransferase (ALT) 87 U/L (12-78) H Alkaline Phosphatase 140 U/L (46-116) H Total Creatine Kinase 112 U/L (26-308) Creatine Kinase MB 0.8 NG/ML (0.0-3.6) Creatine Kinase MB Relative Index 0.7 Total Protein 8.4 G/DL (6.4-8.2) H Albumin 5.1 G/DL (3.4-5.0) H Globulin 3.3 g/dL Albumin/Globulin Ratio 1.5 (1.0-2.7) Salicylates Level 1.1 ug/mL (2.8-20) L Acetaminophen Level < 2 MCG/ML (10-30) L Phenytoin (Dilantin) Level 9.3 ug/mL (10-20) L Valproic Acid Level < 3 MCG/ML (50-100) L Serum Alcohol < 3 mg/dL Urine Color Pale yellow Urine Appearance Clear Urine pH 9 (4.5-8.0) Urine Specific [place] 1.015 (1.005-1.035) Urine Protein Negative (NEGATIVE) Urine Glucose (UA) Negative (NEGATIVE) Urine Ketones 3+ (NEGATIVE) H Urine Blood Negative (NEGATIVE) Urine Nitrite Negative (NEGATIVE) Urine Bilirubin Negative (NEGATIVE) Urine Urobilinogen Normal MG/DL (0.0-1.0) Urine Leukocyte Esterase Negative (NEGATIVE) Urine Opiates Screen Negative (NEGATIVE) Urine Barbiturates Screen Negative (NEGATIVE) Phencyclidine (PCP) Screen Negative (NEGATIVE) Urine Amphetamines Screen Negative (NEGATIVE) Urine Benzodiazepines Screen Negative (NEGATIVE) Urine Cocaine Screen Negative (NEGATIVE) Urine Marijuana (THC) Screen Positive (NEGATIVE) H EKG Diagnostic Results EKG Time: 22:56 Rate: normal Rhythm: NSR ST Segments: no acute changes Other Impression Sinus rhythm, normal intervals, normal axis, no acute ischemic changes. Rhythm Strip Diag. Results Rhythm Strip Time: 22:56 EP Interpretation: yes Rate: 80s Rhythm: NSR, no PVC's, no ectopy Reevaluation Time: 00:19 Last Vital Signs Date Time Temp Pulse Resp B/P (MAP) Pulse Ox O2 Delivery O2 Flow Rate FiO2 07/26/19 22:33 98.8 86 18 131/92 99 Room Air Status: improved Reevaluation Impression CT scan of the head is unremarkable. No evidence of acute intracranial abnormality. Labs have returned largely within normal limits aside from a low phenytoin level and the patient did test positive for THC. Patient states he always test low for phenytoin and is scheduled to follow-up with his neurologist within the next 2 weeks. Patient will be discharged home he was instructed to take his home medications as soon as he got back which he usually takes prior to bedtime. We discussed reasons to return to the emergency department. He understands and agrees with treatment plan. Disposition: HOME, SELF-CARE Condition: Improved Tomás Abrams MD Jul 26, 2019 22:49
[2019-07-26 23:00] LABS: BASOPHILS % (AUTO) 1.2 % (0.0-2.0); EOSINOPHILS % (AUTO) 4.8 % (0.0-3.0); HEMATOCRIT 46.3 % (42.0-52.0); HEMOGLOBIN 16.2 G/DL (14.2-18.0); LYMPHOCYTES % (AUTO) 25.7 % (20.0-45.0); MEAN CORPUSCULAR VOLUME 85 FL (80-99); MONOCYTES % (AUTO) 9.8 % (1.0-10.0); NEUTROPHILS % (AUTO) 58.5 % (45.0-75.0); PLATELET COUNT 244 K/UL (150-450); RED BLOOD COUNT 5.45 M/UL (4.70-6.10); RED CELL DISTRIBUTION WIDTH 10.7 % (11.6-14.8); WHITE BLOOD COUNT 7.6 K/UL (4.8-10.8)
[2019-07-26 23:21] LABS: ANION GAP 11 mmol/L (5-15); BLOOD UREA NITROGEN 8 mg/dL (7-18); CALCIUM 9.7 MG/DL (8.5-10.1); CARBON DIOXIDE 25 MMOL/L (21-32); CHLORIDE 104 MMOL/L (98-107); POTASSIUM 3.7 MMOL/L (3.5-5.1); SODIUM 140 MMOL/L (136-145)
[2019-07-26 23:34] LABS: ALANINE AMINOTRANSFERASE 87 U/L (12-78); ALBUMIN 5.1 G/DL (3.4-5.0); ALBUMIN/GLOBULIN RATIO 1.5 (1.0-2.7); ALKALINE PHOSPHATASE 140 U/L (46-116); ASPARTATE AMINO TRANSFERASE 54 U/L (15-37); BILIRUBIN,TOTAL 0.4 MG/DL (0.2-1.0); CKMB 0.8 NG/ML (0.0-3.6); CREATINE KINASE 112 U/L (26-308)
[2019-07-26 23:52] LABS: APPEARANCE,URINE CLEAR; BILIRUBIN, URINE NEGATIVE (NEGATIVE); COLOR,URINE PALE YELLOW; GLUCOSE, URINE (UA) NEGATIVE (NEGATIVE); KETONES,URINE 3+ (NEGATIVE); LEUKOCYTE ESTERASE ,URINE NEGATIVE (NEGATIVE); NITRITE,URINE NEGATIVE (NEGATIVE); PH,URINE 9 (4.5-8.0); PROTEIN,URINE NEGATIVE (NEGATIVE); UROBILINOGEN,URINE NORMAL MG/DL (0.0-1.0)
[2019-07-27 00:22] VITALS: BP 110/76
--- NOTE | 2019-07-27 00:23 | NUR ---
ED Nurse Note: pt accompanied by parents home
--- NOTE | 2019-07-27 00:23 | NUR ---
ER DISCHARGE NOTE: Patient is cleared to be discharged per ERMD, pt is aox4, on room air, with stable vital signs. pt was given dc and prescription instructions, pt was able to verbalize understanding, pt id band and iv site removed without complications. pt is able to ambulate with steady gait. pt took all belongings.
--- NOTE | 2019-07-29 11:34 | Cardiology Report ---
APPROVED REPORT EKG Measurement Heart [id number] Normal sinus rhythm Rightward axis Borderline ECG
== END 2019-07-27 00:22 | disposition home or self-care (01) ==
LOC: EDBD 22:32 → EMR 22:58
DX: G40.409 Other generalized epilepsy and epileptic syndromes, not intractable, without status epilepticus (principal); S09.90XA Unspecified injury of head, initial encounter; Z88.8 Allergy status to other drugs, medicaments and biological substances; Z96.89 Presence of other specified functional implants; W18.39XA Other fall on same level, initial encounter; Y92.9 Unspecified place or not applicable
CPT/HCPCS: 36415; 70450; 80053; 80164; 80185; 80307; 80329; 81003; 82550; 82553; 85025; 93005; 96361; 96374; 99284; J1953

== ENCOUNTER 2020-02-17 18:12 | Emergency (ER) | payer MEDICAID ==
[~2020-02-17] VITALS: Ht 175.3 cm; Wt 90.7 kg
[2020-02-17 18:35] VITALS: BP 112/61
--- NOTE | 2020-02-17 18:35 | NUR ---
ED Nurse Note: Patient BIBA d/t excessive seizure activity today along with taking too much seizure medication. Patient was having intermittent episodes of seizing and took 2 tabs of Vinpat at 1300 and 2 tabs of Vinpat at 1400. Patient normally takes 1 pill QID, but took more to try to control his seizures. Patient admits to smoking marijuana. 20 g IV started pre-er by EMS in left AC. Blood drawn and sent to lab.
--- NOTE | 2020-02-17 19:05 | NUR ---
ED Nurse Note: Handoff report given to Aislinn MADSEN
[2020-02-17 19:10] VITALS: BP 106/63
--- NOTE | 2020-02-17 19:10 | NUR ---
ED Nurse Note: Report received from CALE Perry. Pt is aaox4, resting in bed at this time. VSS. IV fluids infusing as ordered. Pt unable to provide urine sample, will continue to monitor. Seizure precuations and safety measures in place.
[2020-02-17 19:30] LABS: HEMATOCRIT 46.4 % (42.0-52.0); HEMOGLOBIN 16.2 G/DL (14.2-18.0); MEAN CORPUSCULAR VOLUME 91 FL (80-99); PLATELET COUNT 219 K/UL (150-450); RED BLOOD COUNT 5.09 M/UL (4.70-6.10); RED CELL DISTRIBUTION WIDTH 12.5 % (11.6-14.8); WHITE BLOOD COUNT 20.7 K/UL (4.8-10.8)
--- NOTE | 2020-02-17 19:42 | Emergency Room Report ---
History of Present Illness General Chief Complaint: Seizure Source: Patient, EMS Present Illness HPI 24-year-old male presents the ED status post seizure. History of seizures had multiple seizures today. States he takes Keppra, Dilantin, Vimpat. States that he took more than his usual dose of Vimpat because the seizures were continuing. Took 4 tablets of 200 mg. Denies SI or HI. Admits to marijuana use. Denies any alcohol or drug use. Denies any pain. Denies any headache. Denies any nausea or vomiting. No other aggravating relieving factors. Denies any other associated symptoms Allergies: Coded Allergies: CARBAMAZEPINE (Unverified Allergy, Unknown, 03/26/19) COVID-19 Screening Contact w/high risk pt: No Recent Travel to affected area: No Experienced COVID-19 symptoms?: No Patient History Past Medical History: seizures Past Surgical History: none Pertinent Family History: none Social History: Reports: drug use; Denies: smoking, alcohol use Immunizations: UTD Reviewed Nursing Documentation: PMH: Agreed; PSxH: Agreed Nursing Documentation-PMH Past Medical History: No History, Except For Hx Seizures: Yes Review of Systems All Other Systems: negative except mentioned in HPI Physical Exam Vital Signs Date Time Temp Pulse Resp B/P (MAP) Pulse Ox O2 Delivery O2 Flow Rate FiO2 02/17/20 18:07 96.1 53 14 97/52 (67) 97 02/17/20 18:35 Room Air Sp02 EP Interpretation: reviewed, normal General Appearance: no apparent distress, alert, GCS 15, non-toxic Head: normocephalic, atraumatic Eyes: bilateral eye normal inspection, bilateral eye PERRL ENT: hearing grossly normal, normal pharynx, no angioedema, normal voice Neck: full range of motion, supple/symm/no masses Respiratory: chest non-tender, lungs clear, normal breath sounds, speaking full sentences Cardiovascular #1: regular rate, rhythm, no edema Cardiovascular #2: 2+ carotid (R), 2+ carotid (L), 2+ radial (R), 2+ radial (L) , 2+ dorsalis pedis (R), 2+ dorsalis pedis (L) Gastrointestinal: normal bowel sounds, non tender, soft, non-distended, no guarding, no rebound Rectal: deferred Genitourinary: normal inspection, no CVA tenderness Musculoskeletal: back normal, normal range of motion, gait/station normal, non- tender Neurologic: alert, motor strength/tone normal, oriented x3, sensory intact, responsive, speech normal Psychiatric: judgement/insight normal, memory normal, mood/affect normal, no suicidal/homicidal ideation Reflexes: 3+ bicep (R), 3+ bicep (L), 3+ tricep (R), 3+ tricep (L), 3+ knee (R) , 3+ knee (L) Lymphatic: no adenopathy Medical Decision Making Diagnostic Impression: Primary Impression: Seizure disorder Additional Impression: Overdose of anticonvulsant Qualified Codes: T42.71XA - Poisoning by unspecified antiepileptic and sedative-hypnotic drugs, accidental (unintentional), initial encounter ER Course Hospital Course 24 yo M presents s/p seizure. took too many vimpat pills Differential diagnosis includes- breakthrough seizure, alcohol abuse, noncompliance with medication Clinical course Patient placed on stretcher. Initial history and physical I ordered labs, IV fluids, zofran Labs-electrolytes okay, no leukocytosis, hemoglobin/hematocrit stable. Called poison control. Recommended observation of patient in no immediate danger to patient from taking 1 extra tablet of Vimpat. I discussed findings with patient. AAOx3. no focal deficits. given his evening dose of Keppra. we will discharge home safe for discharge with close outpatient followup. states he has a PMD Diagnosis - overdose of anticonvulsant, seizure disorder stable and discharged to home. Followup with PMD. Return to ED if symptoms recur or worsen Labs Test 02/17/20 19:00 White Blood Count 20.7 K/UL (4.8-10.8) Red Blood Count 5.09 M/UL (4.70-6.10) Hemoglobin 16.2 G/DL (14.2-18.0) Hematocrit 46.4 % (42.0-52.0) Mean Corpuscular Volume 91 FL (80-99) Mean Corpuscular Hemoglobin 31.8 PG (27.0-31.0) Mean Corpuscular Hemoglobin Concent 34.8 G/DL (32.0-36.0) Red Cell Distribution Width 12.5 % (11.6-14.8) Platelet Count 219 K/UL (150-450) Mean Platelet Volume 9.4 FL (6.5-10.1) Neutrophils (%) (Auto) % (45.0-75.0) Lymphocytes (%) (Auto) % (20.0-45.0) Monocytes (%) (Auto) % (1.0-10.0) Eosinophils (%) (Auto) % (0.0-3.0) Basophils (%) (Auto) % (0.0-2.0) Differential Total Cells Counted 100 Neutrophils % (Manual) 89 % (45-75) Lymphocytes % (Manual) 4 % (20-45) Monocytes % (Manual) 5 % (1-10) Eosinophils % (Manual) 0 % (0-3) Basophils % (Manual) 0 % (0-2) Band Neutrophils 2 % (0-8) Platelet Estimate Adequate Platelet Morphology Normal Red Blood Cell Morphology Normal Sodium Level 141 MMOL/L (136-145) Potassium Level 3.5 MMOL/L (3.5-5.1) Chloride Level 106 MMOL/L (98-107) Carbon Dioxide Level 23 MMOL/L (21-32) Anion Gap 12 mmol/L (5-15) Blood Urea Nitrogen 10 mg/dL (7-18) Creatinine 1.0 MG/DL (0.55-1.30) Estimat Glomerular Filtration Rate > 60 mL/min (>60) Glucose Level 181 MG/DL (74-106) Calcium Level 8.8 MG/DL (8.5-10.1) Total Bilirubin 0.4 MG/DL (0.2-1.0) Aspartate Amino Transf (AST/SGOT) 23 U/L (15-37) Alanine Aminotransferase (ALT/SGPT) 49 U/L (12-78) Alkaline Phosphatase 126 U/L (46-116) Total Protein 7.9 G/DL (6.4-8.2) Albumin 4.8 G/DL (3.4-5.0) Globulin 3.1 g/dL Albumin/Globulin Ratio 1.5 (1.0-2.7) Salicylates Level 1.1 ug/mL (2.8-20) Acetaminophen Level < 2 MCG/ML (10-30) Phenytoin (Dilantin) Level < 0.5 ug/mL (10-20) Serum Alcohol < 3 mg/dL Last Vital Signs Date Time Temp Pulse Resp B/P (MAP) Pulse Ox O2 Delivery O2 Flow Rate FiO2 3/24/20 19:10 97.2 70 19 106/63 100 Room Air Status: improved Disposition: HOME, SELF-CARE Condition: Stable Referrals: NOT CHOSEN IPA/,REFERRING (PCP) Tomy Miller MD Feb 17, 2020 19:42
[2020-02-17 19:47] LABS: ALANINE AMINOTRANSFERASE 49 U/L (12-78); ALBUMIN 4.8 G/DL (3.4-5.0); ALBUMIN/GLOBULIN RATIO 1.5 (1.0-2.7); ALKALINE PHOSPHATASE 126 U/L (46-116); ANION GAP 12 mmol/L (5-15); ASPARTATE AMINO TRANSFERASE 23 U/L (15-37); BILIRUBIN,TOTAL 0.4 MG/DL (0.2-1.0); BLOOD UREA NITROGEN 10 mg/dL (7-18); CALCIUM 8.8 MG/DL (8.5-10.1); CARBON DIOXIDE 23 MMOL/L (21-32); CHLORIDE 106 MMOL/L (98-107); POTASSIUM 3.5 MMOL/L (3.5-5.1); SODIUM 141 MMOL/L (136-145)
--- NOTE | 2020-02-17 20:35 | NUR ---
ED Nurse Note: Pt awaiting on parents to pick him up. ERMD is ok with DC pt without receiving urine sample.
[2020-02-17 20:45] VITALS: BP 112/64
--- NOTE | 2020-02-17 20:45 | NUR ---
ER DISCHARGE NOTE: Patient is cleared to be discharged per ERMD, pt is aox4, on room air, with stable vital signs. pt was given dc instructions, pt was able to verbalize understanding, pt id band and iv site removed without complications. pt is able to ambulate with steady gait. pt took all belongings and pt parents are picking him up from ED.
== END 2020-02-17 20:45 | disposition home or self-care (01) ==
LOC: EDBD 18:12 → EMR 18:25
DX: G40.909 Epilepsy, unspecified, not intractable, without status epilepticus (principal); T42.71XA Poisoning by unspecified antiepileptic and sedative-hypnotic drugs, accidental (unintentional), initial encounter; Z79.899 Other long term (current) drug therapy; F12.90 Cannabis use, unspecified, uncomplicated
CPT/HCPCS: 36415; 80053; 80185; 80299; 82962; 85007; 85025; 96361; 96374; G0480; G0481; J2405; J7030; Z7502; 99284